=== PATIENT | female | born 1980 | race Two or more races ===

== ENCOUNTER 2017-06-23 10:22 | Emergency (ER) | payer MEDICAID ==
[~2017-06-23] VITALS: Ht 167.6 cm; Wt 104.3 kg
[2017-06-23 10:52] VITALS: BP 137/95
== END 2017-06-23 11:13 | disposition home or self-care (01) ==
LOC: ER 10:32
DX: J06.9 Acute upper respiratory infection, unspecified (principal)
CPT/HCPCS: 99283; A4606; Z7610